=== PATIENT | female | born 1960 | race Caucasian/White ===

== ENCOUNTER 2021-10-16 09:37 | Emergency (ER) | payer OTHER, SELFPAY ==
[2021-10-16 09:50] VITALS: BP 158/101; PULSE 96; RESP 14; TEMP 37.2; O2SAT 100
--- NOTE | 2021-10-16 10:44 | ED.URI ---
HPI - URI/Sore Throat General Chief Complaint: Upper Respiratory Infection Stated Complaint: Eye Problem/Sinus Pain Time Seen by Provider: 10/16/21 10:44 Source: patient, RN notes reviewed and old records reviewed Mode of arrival: ambulatory Limitations: no limitations History of Present Illness HPI Narrative: 60 year old female who presents to [facility] care with complaints of sinus pressure, headache, yellow nasal drainage,congestion,ears feel full, and cough for the past 2 weeks. She reports that she has had Covid and flu vaccinations. Patient states that on day 4 of symptoms she took COVID test which was negative. Patient states that she has been taking OTC cold medication for her symptoms. Patient states that she has had low grade intermittent fevers with no acute chills or sweats, no body aches reported. She reports that for the past few days she has had some crusty drainage from her eyes with some redness noted, no changes in vision or any acute sharp pain to her eyes. MD elicited complaint: sore throat, nasal congestion and sinus pain Related Data Home Medications Medication Instructions Recorded Confirmed metoprolol succinate 25 mg PO DAILY 10/16/21 10/16/21 triamterene-hydrochlorothiazid 0.5 tablet PO DAILY 10/16/21 10/16/21 Allergies Allergy/AdvReac Type Severity Reaction Status Date / Time lisinopril AdvReac Mild Cough Verified 10/16/21 10:21 Review of Systems Review of Systems: CONSTITUTIONAL: Reports low grade fever, no chills, or sweats. EYES: Denies visual changes,some bilateral eye redness, with some crusty drainage from eyes for the past 2 days. ENT: Positive for rhinorrhea, congestion, sore throat, or otalgia. CARDIOVASCULAR: Denies chest pain, palpitations, or edema. RESPIRATORY:Positive for cough denies dyspnea. GASTROINTESTINAL: Denies abdominal pain, nausea, vomiting, or diarrhea. GENITOURINARY: Denies dysuria or hematuria. SKIN: Denies rash or itching. MUSCULOSKELETAL: Denies back pain, joint pain, or myalgia. NEUROLOGIC: Positive for frontal headache,no numbness, or weakness. PSYCHIATRIC: Denies anxiety or depression. All systems reviewed & are unremarkable except as noted in HPI and below PMFSH Past Medical History Medical History (Updated 10/17/21 @ 15:07 by Mary Reeder NP) Hypertension Seasonal allergies Surgical History Surgical History (Updated 10/17/21 @ 15:06 by Mary Reeder NP) History of endometrial ablation Social History Social History (Updated 10/17/21 @ 15:08 by Mary Reeder NP) Smoking status: Never smoker Alcohol intake: current Alcohol use details: social Substance use: never Living arrangements: with family Gender identity (if verbalized by the patient): Female Comments At time of signature, agree with nursing past medical, surgical, social and family history. There is no relevant family history pertinent to the presenting complaint Exam Narrative: GENERAL: Well-appearing, well-nourished, and in no acute distress. HEAD: Normocephalic, atraumatic. EYES: PERRLA and EOMI. some crusting drainage from eyes with some redness noted ENT: Nares red with light yellow rhinorrhea no epistaxis. Mucous membranes moist.TM's normal with dull light reflex, Throat red with no lesions or exudates, no tonsil enlargement, post nasal drainage noted. NECK: Supple.no lymphadenopathy CHEST: Clear to auscultation. No respiratory distress.cough SAO2 100% on room air HEART: Regular rate and rhythm. No murmur heard. Normal peripheral pulses. ABDOMEN: Soft, nontender, nondistended, normal active bowel sounds. EXTREMITIES: Normal range of motion. No edema. SKIN: Warm, dry, no rash. NEURO: No focal deficits. Alert and oriented x3.Frontal headache. Course Vital Signs Vital signs: Vital Signs Temperature 37.2 C 10/16/21 09:50 Pulse Rate 96 10/16/21 09:50 Respiratory Rate 14 10/16/21 09:50 Blood Pressure 158/101 H 10/16/21 09:50 Pulse Oximetry 100 12
== END 2021-10-16 11:05 | disposition home or self-care (01) ==
PROVIDERS: Emergency Provider Registered Nurse; PCP Internal Medicine Infectious Disease
DX: J32.9 Chronic sinusitis, unspecified (principal); B96.89 Other specified bacterial agents as the cause of diseases classified elsewhere; H10.9 Unspecified conjunctivitis; I10 Essential (primary) hypertension
CPT/HCPCS: 99213; G0463

== ENCOUNTER 2022-01-20 09:22 | Emergency (ER) | payer OTHER, SELFPAY ==
--- NOTE | 2022-01-20 09:25 | ED.FEMALEGU ---
HPI - Female Genitourinary General Chief complaint: Urogenital-Female Stated complaint: poss uti Time Seen by Provider: 01/20/22 09:26 Source: patient and RN notes reviewed History of Present Illness HPI Narrative: Patient is a 61-year-old female who presents the urgent care with complaints about possible UTI. Patient states that last night she started to notice some frequency and this morning blood in the urine. Patient states that she was on Macrobid in August for UTI and prior to that she was on ciprofloxacin. Patient denies of any nausea, vomiting, abdominal pain, low back pain. Has slight dysuria after urinary flow. Patient has not taken anything [id number] for her symptoms. No other acute complaints. No acute distress noted. Patient aware of the plan of care. Some parts of this dictation were generated by voice recognition software and may contain typographical and/or grammatical inaccuracies. Related Data Home Medications Medication Instructions Recorded Confirmed metoprolol succinate 25 mg PO DAILY 10/16/21 01/20/22 triamterene-hydrochlorothiazid 0.5 tablet PO DAILY 10/16/21 01/20/22 Allergies Allergy/AdvReac Type Severity Reaction Status Date / Time lisinopril AdvReac Mild Cough Verified 01/20/22 09:53 Review of Systems Review of Systems: CONSTITUTIONAL: Denies fever, chills, or sweats. EYES: Denies visual changes, redness, or discharge. ENT: Denies rhinorrhea, congestion, sore throat, or otalgia. CARDIOVASCULAR: Denies chest pain, palpitations, or edema. RESPIRATORY: Denies cough or dyspnea. GASTROINTESTINAL: Denies abdominal pain, nausea, vomiting, or diarrhea. GENITOURINARY: Reports of dysuria and urinary frequency with scant hematuria SKIN: Denies rash or itching. MUSCULOSKELETAL: Denies back pain, joint pain, or myalgia. NEUROLOGIC: Denies headache, numbness, or weakness. All other systems reviewed are negative, except as documented in HPI. [facility], [facility] Past Medical History Medical History (Updated 01/20/22 @ 10:05 by YANY Estrella) Hypertension Seasonal allergies Surgical History Surgical History (Updated 10/17/21 @ 15:06 by Mary Reeder NP) History of endometrial ablation Social History Social History (Updated 10/17/21 @ 15:08 by Mary Reeder NP) Smoking status: Never smoker Alcohol intake: current Alcohol use details: social Substance use: never Gender identity (if verbalized by the patient): Female Comments At the time of my signature, I reviewed and agree with the nursing past medical, surgical, social, and family history. There is no relevant family history pertinent to the patient complaint. Exam Narrative: GENERAL: This is a well-nourished, well-developed patient, in no apparent distress. HEAD: normocephalic, atraumatic. EYES: PERRL. Sclera clear/white. Vision is grossly intact. EARS: External ears normal NOSE: External nose normal with no obvious nasal discharge, nares without redness, no rhinorrhea. THROAT: Mucous membranes moist NECK: Neck supple CARDIOVASCULAR: Regular rate and rhythm without murmurs, gallops, or rubs. RESPIRATORY: Clear to auscultation. Breath sounds equal bilaterally. No wheezes, rales, or rhonchi. GASTROINTESTINAL: Abdomen soft, non-tender, nondistended. SKIN: warm, intact with no suspicious lesions or rash, good texture and turgor. NEURO: awake, alert, and oriented to person, place and time. There were no obvious focal neurologic abnormalities. EXTREMITIES: No clubbing, cyanosis, or edema. BACK: Negative bilateral CVA tenderness Course Course Level of Care: Express Care Visit Vital Signs Vital signs: Vital Signs Temperature 97.9 F 01/20/22 09:30 Pulse Rate 58 L 01/20/22 09:30 Respiratory Rate 16 01/20/22 09:30 Blood Pressure 146/80 H 01/20/22 09:30 Pulse Oximetry 100 01/20/22 09:30 Temperature 97.9 F 01/20/22 09:30 Pulse Rate 58 L 01/20/22 09:30 Respiratory Rate 16 01/20/22
[2022-01-20 09:30] VITALS: BP 146/80; PULSE 58; RESP 16; TEMP 36.6; O2SAT 100
== END 2022-01-20 10:10 | disposition home or self-care (01) ==
PROVIDERS: Emergency Provider Nurse Practitioner Family; PCP Internal Medicine Infectious Disease
DX: N39.0 Urinary tract infection, site not specified (principal); I10 Essential (primary) hypertension
CPT/HCPCS: 81003; 87077; 87086; 87186; 99213; G0463